=== PATIENT | female | born 1980 | race Two or more races ===

== ENCOUNTER 2023-01-06 05:15 | Inpatient (IN) | payer OTHER ==
[~2023-01-06] VITALS: Ht 165.1 cm; Wt 74.8 kg
[~2023-01-06 05:15] MED LIST: MOUNJARO12.5 MG/0.; PROTONIX40 M1 PO; SYNTHROID50 MCG PO
== END 2023-01-07 23:07 | disposition home or self-care (01) | DRG 581 ==
LOC: CIR.AMB 05:15 → SURH 18:30
PROVIDERS: ADMIT Specialist; ATTEND Specialist
PROC: 0J0M0ZZ Alteration of Left Upper Leg Subcutaneous Tissue and Fascia, Open Approach (ICD-10-PCS; principal; 2023-01-06 09:00)
DX: L98.7 Excessive and redundant skin and subcutaneous tissue (principal)